=== PATIENT | female | born 1990 | race Caucasian/White ===

== ENCOUNTER 2017-10-18 09:10 | Inpatient (IN) | payer BC ==
[2017-10-18] MEDS ORDERED: Nalbuphine 20 MG/1 ML Amp IM PRN (15:23)
[2017-10-18] MEDS ORDERED: fentaNYL 100 MCG/2 ML SDV IVPUSH PRN (15:23)
[2017-10-18] MEDS ORDERED: Sodium Chloride 0.9% 10 ML Syringe FLUSH PRN (15:23)
[2017-10-18] MEDS ORDERED: Ondansetron 4 MG/2 ML SDV IV PRN ×2 (15:23→19:42)
[2017-10-18] MEDS ORDERED: Carboprost Tromethamine 250 MCG/1 ML Amp IM PRN (15:23)
[2017-10-18] MEDS ORDERED: Lidocaine 1% 30 ML SDV INJECT PRN (15:23)
[2017-10-18] MEDS ORDERED: Tranexamic Acid 1,000 MG in Sodium Chloride 0.9% 100 ML IV PRN (15:23)
[2017-10-18] MEDS ORDERED: Lactated Ringers 500 ML IV ONE (15:23)
[2017-10-18] MEDS ORDERED: Methylergonovine 0.2 MG/1 ML Amp IM PRN (15:23)
[2017-10-18] MEDS ORDERED: Misoprostol 400 MCG (4 X 100 MCG TAB) RECTAL PRN (15:23)
[2017-10-18] MEDS ORDERED: Acetaminophen 325 MG Tab PO PRN (15:23)
[2017-10-18] MEDS ORDERED: Nalbuphine 20 MG/1 ML Amp IVPUSH PRN (15:23)
[2017-10-18] MEDS ORDERED: Oxytocin/Normal Saline 30 UNIT/500 ML BAG IV SCH (15:30)
[2017-10-18] MEDS: Misoprostol 25 MCG (1/4 of 100 MCG) Tab VAG PRN ×2 (15:35→20:30)
--- NOTE | 2017-10-18 17:12 | PCM.LDHP ---
L&D History of Present Illness - General Date of Service: 10/18/17 Admit Problem/Dx: Patient Status Order with Admit Dx/Problem 10/18/17 15:23 Patient Status [ADT] Routine Admission Diagnosis/Problem Admission Diagnosis/Problem Oligohydramnios Source of Information: Patient History Limitations: Reports: No Limitations - History of Present Illness Introduction:: 27-year-old at 39w5d admitted for IOL secondary to oligohydramnios. Patient was seen last week and had an ultrasound for growth. REMA was noted to be borderline low at 6.7 cm. Because of this, patient underwent NST and BPP today. NST was reactive and reassuring; however, BPP was 6/8 for REMA of 4.37. Due to REMA of <5, patient meets criteria for induction of labor. Patient has been feeling well. Baby has been active. No vaginal bleeding or leaking of fluid. No headaches or vision changes. - Related Data Allergies/Adverse Reactions: Allergies Allergy/AdvReac Type Severity Reaction Status Date / Time amoxicillin [From Augmentin] Allergy Cannot Verified 10/18/17 15:12 Remember clavulanic acid Allergy Cannot Verified 10/18/17 15:12 [From Augmentin] Remember Past Medical History Endocrine/Metabolic History: Reports: Hypothyroidism - Past Surgical History HEENT Surgical History: Reports: Myringotomy w Tube(s), Oral Surgery Social & Family History - Family History Cardiac: Reports: CAD (Father, Paternal grandmother) Respiratory: Reports: Asthma (Mother), COPD (Father) Neurological: Reports: CVA (Maternal grandfather) Endocrine/Metabolic: Reports: Hypothyroidism (Mother) Oncologic: Reports: Brain (Paternal grandfather), Breast (Paternal grandmother, several 2nd and 3rd degree relatives) - Tobacco Use Smoking Status *Q: Never Smoker - Tobacco Core Measures Tobacco Use/Smoking Within Last 30 Days: No - Alcohol Use Alcohol Use History: No - Recreational Drug Use Recreational Drug Use: No - Sexual History Sexual History: Reports: Single Partner - Living Situation & Occupation Living situation: Reports: Occupation: Employed (Self) H&P Review of Systems - Review of Systems: Review Of Systems: See Below General: Reports: No Symptoms HEENT: Reports: No Symptoms Pulmonary: Reports: No Symptoms Cardiovascular: Reports: No Symptoms Gastrointestinal: Reports: No Symptoms Genitourinary: Reports: No Symptoms Musculoskeletal: Reports: No Symptoms Skin: Reports: No Symptoms Psychiatric: Reports: No Symptoms Neurological: Reports: No Symptoms Hematologic/Lymphatic: Reports: No Symptoms L&D Exam - Exam Exam: See Below - OB Specific Fundal Height In cm: 38 Movement: Active Heart Tones: Present Heart Tones per Min: 145 Heart Rate (FHR) Variability: Moderate (6-25 bmp) Presentation: Vertex - Perera Score Perera Score Cervix Position: Posterior Perera Score Consistency: Soft Perera Score Effacement: >80% Perera Score Dilation: 1-2 cm Perera Score 's Station: -2 Perera Score Total: 7 - Exam General: Alert, Oriented HEENT: Mucosa Moist & [place], Posterior Pharynx Clear Lungs: Clear to Auscultation, Normal Respiratory Effort Cardiovascular: Regular Rate, Regular Rhythm. No: Systolic Murmur, Diastolic Murmur Genitourinary: Normal external exam, Normal bimanual exam Back Exam: Normal Inspection Extremities: Pedal Edema (1+ to lower extremities bilterally) Skin: Warm, Dry, Intact Psychiatric: Alert, Normal Affect, Normal Mood - Patient Data Lab Results Last 24 hrs: Laboratory Results - last 24 hr 10/18/17 Range/Units 15:40 WBC 11.1 H (5.0-10.0) 10^3/uL RBC 4.28 (4.2-5.4) 10^6/uL Hgb 13.3 (12.0-16.0) g/dL Hct 38.1 (37.0-47.0) % MCV 89.0 (80-100) fL MCH 31.1 (27.0-34.0) pg MCHC 34.9 (33.0-35.0) g/dL Plt Count 196 (150-450) 10^3/uL Result Diagrams: 10/18/17 15:40 - Problem List (1) Oligohydramnios in fowler in third trimester SNOMED Code(s): 49583455, 56848238 ICD Code: O41.03X0 - OLIGOHYDRAMNIOS, THIRD TRIMESTER, NOT APPLICABLE OR UNSP Status: Acute Current Visit: Yes (2) Hypothyroidism SNOMED Code(s): 54268791 ICD Code: E03.9 - HYPOTHYROIDISM, UNSPECIFIED Status: Acute Current Visit : Yes (3) care in third trimester SNOMED Code(s): 825591712, 42494584, 77910573, 260512481, 459895193 ICD Code: Z34.93 - ENCNTR FOR SUPRVSN OF NORMAL PREG, UNSP, THIRD TRIMESTER Status: Acute Current Visit: Yes Problem List Initiated/Reviewed/Updated: Yes Orders Last 24hrs: Active Orders 24 hr Category Date Time Status Patient Status [ADT] Routine ADT 10/18/17 15:23 Active Communication Order [RC] ASDIRECTED Care 10/18/17 15:23 Active Communication Order [RC] ASDIRECTED Care 10/18/17 15:23 Active Communication Order [RC] ASDIRECTED Care 10/18/17 15:23 Active Communication Order [RC] ASDIRECTED Care 10/18/17 15:23 Active Communication Order [RC] ASDIRECTED Care 10/18/17 15:23 Active Communication Order [RC] ASDIRECTED Care 10/18/17 15:23 Active Heart Tones [RC] PER UNIT ROUTINE Care 10/18/17 15:23 Active Monitoring [RC] PER UNIT ROUTINE Care 10/18/17 15:23 Active Notify Provider Vital Signs OB [RC] ASDIRECTED Care 10/18/17 15:23 Active Notify Provider [RC] PRN Care 10/18/17 15:23 Active Notify Provider [RC] PRN Care 10/18/17 15:23 Active Notify Provider [RC] PRN Care 10/18/17 15:23 Active Notify Provider [RC] STAT Care 10/18/17 15:23 Active Pump Management, Intrathecal [RC] ASDIRECTED Care 10/18/17 15:23 Active Up ad Makenzie [RC] ASDIRECTED Care 10/18/17 15:23 Active Vaginal Exam [RC] PRN Care 10/18/17 15:23 Active Vital Signs [RC] PER UNIT ROUTINE Care 10/18/17 15:23 Active Clear Liquid Diet [DIET] Diet 10/18/17 Dinner Active Acetaminophen [Tylenol] Med 10/18/17 15:23 Active 650 mg PO Q4H PRN Carboprost Tromethamine [Hemabate DS] Med 10/18/17 15:23 Active 250 mcg IM ASDIRECTED PRN Lactated Ringers [Ringers, Lactated] 1,000 ml Med 10/18/17 15:30 Active IV ASDIRECTED Levothyroxine Med 10/19/17 06:00 Active 25 mcg PO ACBREAKFAST Lidocaine 1% [Xylocaine-MPF 1%] Med 10/18/17 15:23 Active 10 ml INJECT ASDIRECTED PRN Methylergonovine [Methergine] Med 10/18/17 15:23 Active 0.2 mg IM ASDIRECTED PRN Misoprostol [Cytotec] Med 10/18/17 15:23 Active 25 mcg VAG Q4H PRN Misoprostol [Cytotec] Med 10/18/17 15:23 Active 800 mcg RECTAL ASDIRECTED PRN Nalbuphine [Nubain] Med 10/18/17 15:23 Active 10 mg IVPUSH Q3H PRN Nalbuphine [Nubain] Med 10/18/17 15:23 Active 20 mg IM Q3H PRN Ondansetron [Zofran] Med 10/18/17 15:23 Active 4 mg IV Q4H PRN Oxytocin/Normal Saline [Pitocin in NS 30 UNIT/500 ML] Med 10/18/17 15:30 Active 30 unit in 500 ml IV TITRATE Sodium Chloride 0.9% [Saline Flush] Med 10/18/17 15:23 Active 10 ml FLUSH ASDIRECTED PRN Tranexamic Acid [Cyklokapron] 1,000 mg Med 10/18/17 15:23 Active Sodium Chloride 0.9% [Normal Saline] 100 ml IV ONETIME fentaNYL [Sublimaze] Med 10/18/17 15:23 Active 50 mcg IVPUSH Q1H PRN Saline Lock Insert [OM.PC] Routine Oth 10/18/17 15:23 Ordered Resuscitation Status Routine Resus Stat 10/18/17 15:23 Ordered Medication Orders Acetaminophen (Tylenol) 650 mg PO Q4H PRN PRN Reason: Pain (Mild 1-3) and fever Carboprost Tromethamine (Hemabate Ds) 250 mcg IM ASDIRECTED PRN PRN Reason: HEMORRHAGE Fentanyl (Sublimaze) 50 mcg IVPUSH Q1H PRN PRN Reason: Pain (moderate 4-6) Lactated Ringer's (Ringers, Lactated) 1,000 mls @ 125 mls/hr IV ASDIRECTED LORRI Oxytocin/Sodium Chloride (Pitocin In Ns 30 Unit/500 Ml) 30 unit in 500 mls @ 2 mls/hr IV TITRATE LORRI; Protocol Tranexamic Acid 1,000 mg/ (Sodium Chloride) 110 mls @ 660 mls/hr IV ONETIME PRN PRN Reason: Bleeding Levothyroxine Sodium (Levothyroxine) 25 mcg PO ACBREAKFAST LORRI Lidocaine HCl (Xylocaine-Mpf 1%) 10 ml INJECT ASDIRECTED PRN PRN Reason: Perineal Repair Methylergonovine Maleate (Methergine) 0.2 mg IM ASDIRECTED PRN PRN Reason: Hemorrhage Misoprostol (Cytotec) 800 mcg RECTAL ASDIRECTED PRN PRN Reason: Hemorrhage Misoprostol (Cytotec) 25 mcg VAG Q4H PRN PRN Reason: cervical ripening Last Admin: 10/18/17 15:35 Dose: 25 mcg Nalbuphine HCl (Nubain) 10 mg IVPUSH Q3H PRN PRN Reason: Pain (moderate 4-6) Nalbuphine HCl (Nubain) 20 mg IM Q3H PRN PRN Reason: Abdominal Pain Ondansetron HCl (Zofran) 4 mg IV Q4H PRN PRN Reason: Nausea/Vomiting Sodium Chloride (Saline Flush) 10 ml FLUSH ASDIRECTED PRN PRN Reason: Keep Vein Open Assessment/Plan Comment:: 27-year-old at 39w5d for IOL secondary to oligohydramnios 1. Admit to L&D. Initiate routine intrapartum orders. 2. Cytotec placed at 1530 3. Strict clear liquid diet due to history of vomiting with anesthesia 4. AROM and pitocin for augmentation as needed 5. Expectant management. Anticipate Patricia Rivera MD
[2017-10-18] MEDS ORDERED: Lactated Ringers 1,000 ML IV PRN (19:39)
[2017-10-18] MEDS ORDERED: diphenhydrAMINE 50 MG/ML SDV IV PRN (19:43)
[2017-10-18] MEDS ORDERED: Citric Acid/Sodium Citrate Solution 30 ML Cup PO PRN (19:43)
[2017-10-18] MEDS ORDERED: hydrOXYzine HCl 25 MG Tab PO ONE (20:42)
[2017-10-19] MEDS: Lactated Ringers 1,000 ML IV SCH ×4 (02:17→14:33)
[2017-10-19] MEDS ORDERED: Bupivacaine 0.75%/D5W 2 ML Amp ONE (05:17)
[2017-10-19] MEDS ORDERED: EPINEPHrine 1 MG/ML SDV ONE (05:17)
[2017-10-19] MEDS ORDERED: fentaNYL 100 MCG/2 ML SDV ONE (05:17)
--- NOTE | 2017-10-19 05:58 | PCM.PRNOTE ---
- Free Text/Narrative Note: Requested to provide analgesia to full term patient in severe pain. Upon entering the room, patient is supine in bed complaining of severe abdominal/ pelvic pain and discomfort. Procedure was discussed with patient including adverse outcomes and expectations. Pt consented to analgesia, SAB/IT. Pt placed into a sitting position. Landmarks for SAB/IT were identified and marked. Hands were washed and appropriate PPE was applied. Back was prepped with betadine x3. A sterile, transparent, fenestrated drape was applied. Excess betadine was removed. Using 3 mL of a 1% lidocaine solution, a skin wheel was placed at the L3/L4 interspace. A 24 ga (4 inch) Pencan spinal needle was inserted until positive for CSF. Negative for heme or paresthesias. Injected fentanyl 20 mcg, sufentanil 10 mcg, and 11.25 mg of a 0.75% bupivacaine solution with an epi wash. Pt was placed left lateral position for approximately 20 minutes. There were zero complications or adverse outcomes. Will continue to monitor.
[2017-10-19] MEDS ORDERED: Acetaminophen 325 MG Tab PO PRN (13:41)
[2017-10-19] MEDS ORDERED: Benzocaine/Menthol 20%-0.5% Spray 56 GM Canister TOP PRN (13:41)
[2017-10-19] MEDS ORDERED: Simethicone 80 MG Tab.Chew PO PRN (13:41)
[2017-10-19] MEDS ORDERED: Famotidine 20 MG Tab PO PRN (13:50)
[2017-10-19] MEDS: Ibuprofen 800 MG Tab PO PRN ×2 (14:30→22:13)
[2017-10-19] MEDS: Levothyroxine 25 MCG Tab PO SCH (16:31)
[2017-10-19] MEDS: Docusate Sodium 100 MG Cap PO PRN (22:14)
[2017-10-20] MEDS: Levothyroxine 25 MCG Tab PO SCH (05:44)
[2017-10-20] MEDS: Ibuprofen 800 MG Tab PO PRN ×2 (08:28→21:52)
[2017-10-20] MEDS: Ferrous Sulfate 325 MG Tab PO SCH (08:28)
[2017-10-20] MEDS: Prenatal Multivitamin with Calcium/Folic Acid/Iron Tab PO SCH (08:28)
[2017-10-20] MEDS: Docusate Sodium 100 MG Cap PO PRN ×2 (08:29→21:52)
--- NOTE | 2017-10-20 09:13 | PN ---
DATE: 10/20/2017 SUBJECTIVE: day #1, status post vacuum-assisted vaginal delivery, doing well. She has been ambulating and tolerating regular diet, voiding without difficulties, has not yet had a bowel movement. No chest pain or shortness of breath. No symptoms of preeclampsia. Bleeding is a little bit heavier than she thought it would be, but sounds normal for this stage of . Also, reports that the bleeding tends to be more intense after nursing her . No new concerns today, and feels that things are going quite well. Anticipating discharge home tomorrow. OBJECTIVE: Vital Signs: Temperature is 98.4; pulse generally in the 70s, however, most recent was 101; blood pressure 120/81; respiratory rate of 16; and O2 saturations 99% on room air. Heart: Regular without murmur. Lungs: Clear to auscultation bilaterally. Abdomen: Soft and nontender. Bowel sounds are positive. Fundus is firm and below the umbilicus. Extremities: 2+ pitting edema on the right, 1+ pitting edema on the left. No erythema or tenderness noted. LABORATORY DATA: Admission hemoglobin was 13.3. Blood loss at delivery was really average to small; therefore, a repeat CBC not needed. ASSESSMENT: 1. Status post vacuum-assisted vaginal delivery, day #1. 2. Status post induction of labor for oligohydramnios. 3. 1, now para 1. 4. mother. 5. 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 PLAN: Continue routine cares, and anticipate discharge home tomorrow. Dr. Rivera will be seeing her again at that time. They will contact me prior to that if any concerns arise. [facility] /[phone]
[2017-10-21] MEDS: Ibuprofen 800 MG Tab PO PRN ×2 (05:52→14:18)
[2017-10-21] MEDS: Levothyroxine 25 MCG Tab PO SCH (05:52)
[2017-10-21] MEDS: Prenatal Multivitamin with Calcium/Folic Acid/Iron Tab PO SCH (10:28)
[2017-10-21] MEDS: Docusate Sodium 100 MG Cap PO PRN (10:29)
[2017-10-21] MEDS: Ferrous Sulfate 325 MG Tab PO SCH (10:29)
--- NOTE | 2017-10-21 11:35 | PCM.DCSUM1 ---
Discharge Summary - Hospital Course Free Text/Narrative:: 27-year-old PPD#2 status post VAVD at 39w6d gestation after IOL for oligohydramnios - Discharge Data Discharge Date: 10/21/17 Discharge Disposition: Home, Self-Care 01 Condition: Good - Discharge Diagnosis/Problem(s) (1) Oligohydramnios in fowler in third trimester SNOMED Code(s): 80298021, 08968988 ICD Code: O41.03X0 - OLIGOHYDRAMNIOS, THIRD TRIMESTER, NOT APPLICABLE OR UNSP Status: Acute Current Visit: Yes (2) Hypothyroidism SNOMED Code(s): 19234733 ICD Code: E03.9 - HYPOTHYROIDISM, UNSPECIFIED Status: Acute Current Visit : Yes (3) care in third trimester SNOMED Code(s): 080669540, 65129626, 45490835, 809412899, 345891087 ICD Code: Z34.93 - ENCNTR FOR SUPRVSN OF NORMAL PREG, UNSP, THIRD TRIMESTER Status: Acute Current Visit: Yes (4) Perineal laceration during delivery, delivered SNOMED Code(s): 433525643 ICD Code: O70.9 - PERINEAL LACERATION DURING DELIVERY, UNSPECIFIED Status: Acute Current Visit: Yes (5) Status post vacuum-assisted vaginal delivery SNOMED Code(s): 130435427, [id number] ICD Code: Z87.42 - PERSONAL HISTORY OF OTH DISEASES OF THE FEMALE GENITAL TRACT Status: Acute Current Visit: Yes - Patient Summary/Data Operative Procedure(s) Performed: VAVD Complications: None Consults: None Labs Pending at D/C: None Recommended Follow-up Testing/Procedures: None Planned Operative Procedure(s) after DC: None Hospital Course: Unremarkable. (Please see subjective section) - Patient Instructions Diet: Usual Diet as Tolerated Activity: As Tolerated, No Lifting Over 20 Pounds Driving: May Drive Today Showering/Bathing: May Shower Notify Provider of: Fever, Increased Pain, Nausea and/or Vomiting - Discharge Plan Home Medications: Home Meds Famotidine [Pepcid] 20 mg PO DAILY PRN 10/18/17 [History] Levothyroxine 25 mcg PO ACBREAKFAST 10/18/17 [History] Omeprazole [priLOSEC OTC] 20 mg PO DAILY PRN 10/18/17 [History] Vits #93/Iron Fum/FA [ Formula Tablet] 1 tab PO DAILY 10/18/17 [History] Acetaminophen [Tylenol] 650 mg PO Q6H PRN tablet 10/21/17 [Rx] Docusate Sodium [Colace] 100 mg PO BID PRN cap 10/21/17 [Rx] Ibuprofen [IJD: Ibuprofen] 800 mg PO Q8H PRN tablet 10/21/17 [Rx] Patient Handouts: Home Care Instructions for Mom, Care of a Perineal Tear Referrals: Patricia Rivera MD [Primary Care Provider] - (6-8 weeks for visit) - Discharge Summary/Plan Comment DC Time >30 min.: No Discharge Summary/Plan Comment: Discharge home today with follow-up in 6-8 weeks for routine check. Reasons to return to the clinic sooner or present to the emergency department were reviewed with the patient, and all questions were answered. - General Info Date of Service: 10/21/17 Subjective Update: Patient is doing well. She is tolerating a general diet. She is ambulating without difficulty. She is urinating and passing gas but has not yet had a bowel movement. Her pain is well-controlled with Tylenol and ibuprofen. Vaginal bleeding has decreased. Breast-feeding is going fairly well. There is concern that the baby may have a tongue tie. No concerns per patient or per nursing. Functional Status: Reports: Pain Controlled, Tolerating Diet, Ambulating, Urinating. Denies: New Symptoms - Review of Systems General: Reports: No Symptoms HEENT: Reports: No Symptoms Pulmonary: Reports: No Symptoms Cardiovascular: Reports: No Symptoms Gastrointestinal: Reports: No Symptoms Genitourinary: Reports: No Symptoms Musculoskeletal: Reports: No Symptoms - Patient Data Vitals - Most Recent: Last Vital Signs Temp 36.9 C 10/21/17 08:00 Pulse 84 10/21/17 08:00 Resp 16 10/21/17 08:00 BP 136/77 10/21/17 08:00 Pulse Ox 98 10/20/17 20:00 Weight - Most Recent: 111.584 kg Med Orders - Current: Current Medications Acetaminophen (Tylenol) 650 mg PO Q4H PRN PRN Reason: Pain (Mild 1-3) and fever Acetaminophen (Tylenol) 650 mg PO Q6H PRN PRN Reason: mild pain or fever Benzocaine/Menthol (Dermoplast Pain Relief [place]) 0 gm TOP Q4H PRN PRN Reason: Perineal comfort measures Last Admin: 10/19/17 14:30 Dose: 1 applic Carboprost Tromethamine (Hemabate Ds) 250 mcg IM ASDIRECTED PRN PRN Reason: HEMORRHAGE Docusate Sodium (Colace) 100 mg PO BID PRN PRN Reason: Constipation Last Admin: 10/21/17 10:29 Dose: 100 mg Famotidine (Pepcid) 20 mg PO BID PRN PRN Reason: Heartburn Ferrous Sulfate (Ferrous Sulfate) 325 mg PO WITHBREAKFAST LORRI Last Admin: 10/21/17 10:29 Dose: 325 mg Oxytocin/Sodium Chloride (Pitocin In Ns 30 Unit/500 Ml) 30 unit in 500 mls @ 2 mls/hr IV TITRATE LORRI; Protocol Last Titration: 10/19/17 12:00 Dose: 0 mls/hr Tranexamic Acid 1,000 mg/ (Sodium Chloride) 110 mls @ 660 mls/hr IV ONETIME PRN PRN Reason: Bleeding Ibuprofen (Motrin) 800 mg PO Q8H PRN PRN Reason: Mild Pain or Fever Last Admin: 10/21/17 05:52 Dose: 800 mg Levothyroxine Sodium (Levothyroxine) 25 mcg PO ACBREAKFAST [facility] Last Admin: 10/21/17 05:52 Dose: 25 mcg Methylergonovine Maleate (Methergine) 0.2 mg IM ASDIRECTED PRN PRN Reason: Hemorrhage Misoprostol (Cytotec) 800 mcg RECTAL ASDIRECTED PRN PRN Reason: Hemorrhage Ondansetron HCl (Zofran) 4 mg IV Q4H PRN PRN Reason: Nausea/Vomiting Prenat Multivit/[place]/Iron/Folic Ac ( Plus Iron) 1 each PO DAILY LORRI Last Admin: 10/21/17 10:28 Dose: 1 each Simethicone (Simethicone) 80 mg PO Q4H PRN PRN Reason: Gas Sodium Chloride (Saline Flush) 10 ml FLUSH ASDIRECTED PRN PRN Reason: Keep Vein Open Discontinued Medications Bupivacaine HCl/Dextrose (Marcaine 0.75% Spinal) Confirm Administered Dose 2 ml .ROUTE .ST-MED ONE Stop: 10/19/17 05:18 Last Admin: 10/19/17 05:40 Dose: Not Given Citric Acid/Sodium Citrate (Bicitra Solution) 30 ml PO ASDIRECTED PRN PRN Reason: PRIOR TO INTRATHECAL Last Admin: 10/19/17 04:43 Dose: 30 ml Diphenhydramine HCl (Benadryl) 25 mg IV ASDIRECTED PRN PRN Reason: PRIOR TO INTRATHECAL Last Admin: 10/19/17 04:44 Dose: 25 mg Epinephrine HCl (Adrenalin) Confirm Administered Dose 1 mg .ROUTE .STK-MED ONE Stop: 10/19/17 05:18 Last Admin: 10/19/17 05:39 Dose: Not Given Famotidine (Pepcid) 20 mg IV ASDIRECTED PRN PRN Reason: PRIOR TO INTRATHECAL Last Admin: 10/19/17 04:45 Dose: 20 mg Fentanyl (Sublimaze) 50 mcg IVPUSH Q1H PRN PRN Reason: Pain (moderate 4-6) Fentanyl (Sublimaze) Confirm Administered Dose 100 mcg .ROUTE .STK-MED ONE Stop: 10/19/17 05:18 Last Admin: 10/19/17 05:40 Dose: Not Given Hydroxyzine HCl (Atarax) 50 mg PO ONETIME ONE Stop: 10/18/17 20:43 Last Admin: 10/19/17 02:51 Dose: 50 mg Lactated Ringer's (Ringers, Lactated) 500 mls @ 999 mls/hr IV .BOLUS ONE Stop: 10/18/17 15:53 Lactated Ringer's (Ringers, Lactated) 1,000 mls @ 125 mls/hr IV ASDIRECTED LORRI Last Admin: 10/19/17 14:33 Dose: 125 mls/hr Lactated Ringer's (Ringers, Lactated) 1,000 mls @ 999 mls/hr IV .Q1H1M PRN PRN Reason: PRIOR TO INTRATHECAL Lidocaine HCl (Xylocaine-Mpf 1%) 10 ml INJECT ASDIRECTED PRN PRN Reason: Perineal Repair Lidocaine HCl (Xylocaine-Mpf 1%) Confirm Administered Dose 5 ml .ROUTE .STK-MED ONE Stop: 10/19/17 05:18 Last Admin: 10/19/17 05:40 Dose: Not Given Misoprostol (Cytotec) 25 mcg VAG Q4H PRN PRN Reason: cervical ripening Last Admin: 10/18/17 20:30 Dose: 25 mcg Nalbuphine HCl (Nubain) 10 mg IVPUSH Q3H PRN PRN Reason: Pain (moderate 4-6) Nalbuphine HCl (Nubain) 20 mg IM Q3H PRN PRN Reason: Abdominal Pain Last Admin: 10/19/17 03:32 Dose: 20 mg Ondansetron HCl (Zofran) 4 mg IV ASDIRECTED PRN PRN Reason: PRIOR TO INTRATHECAL Last Admin: 10/19/17 04:43 Dose: 4 mg Sufentanil Citrate (Sufenta) Confirm Administered Dose 50 mcg .ROUTE .[employer] [place]-MED ONE Stop: 10/19/17 05:18 Last Admin: 10/19/17 05:40 Dose: Not Given - Exam General: Reports: Alert, Oriented Lungs: Reports: Clear to Auscultation, Normal Respiratory Effort Cardiovascular: Reports: Regular Rate, Regular Rhythm, No Murmurs GI/Abdominal Exam: Soft, Non-Tender Extremities: Pedal Edema (Trace bilaterally) Skin: Reports: Warm, Dry, Intact
--- NOTE | 2017-10-21 11:35 | PCM.DEL ---
L & D Note - General Info Date of Service: 10/19/17 Mother's Due Date: 10/20/17 - Delivery Note Labor: Induced by Oxytocin Cervical Ripening Method: Misoprostil, Oxytocin Delivery Outcome: Livebirth Delivery Method: Spontaneous Vaginal Delivery-Single Infant Delivery Mode: Vacuum Extraction Presentation: Vertex Nuchal Cord: None Anesthesia Type: Intrathecal Amniotic Fluid Description: Clear Episiotomy Type: None Laceration: 2nd Degree, Perineal Suture type: Vicryl Suture size: 3-0 Placenta: Intact, Spontaneous Cord: 3 Vessels Estimated Blood Loss: 175 Resuscitation Needed: No [place]: Stimulated, Warmed Provider: Patricia Rivera Score 1 min: 9 Score 5 min: 9 Delivery Comments (Free Text/Narrative):: 27-year-old at 39w5d presented to labor and delivery for induction due to oligohydramnios with an REMA of 4.37. Patient received 2 doses of Cytotec for cervical ripening. Pitocin was started for augmentation. Patient spontaneously ruptured for clear fluid. She received an intrathecal for pain control. About 8 hours 30 minutes after active labor started, patient was noted to be complete. She was allowed to labor down for approximately 90 minutes. Once she is able to feel her contractions, she started pushing. Patient was making fair progress with pushing but was noted to become fatigued. Baby was also suspected to be asynclitic. Therefore, the decision was made to proceed with vacuum assisted vaginal delivery. Dr. Reed was also present and was asked to assess, and she agreed with proceeding. A Kiwi mighty Vac was placed ensuring to avoid maternal tissue. The vacuum was used with 1 contraction. On the third pole, the vacuum lost suction. However, the head had distended enough that delivery was able to be completed without further use of the vacuum. A viable male infant with Apgars of 9 and 9 at one and 5 minutes respectively was delivered without difficulty. He was placed on the mother's chest. The cord was clamped 2 and cut after pulsing had halted. Cord blood was collected. A small second-degree perineal laceration was repaired in the usual fashion. Approximately 15 minutes after delivery, the placenta was delivered spontaneously and intact. Uterine massage was performed, and bleeding was appropriate. There were no immediate complications, and patient tolerated the procedure well. Induction Criteria - Perera Score Perera Score Dilation: 1-2 cm Perera Score Effacement: >80% Perera Score Infant's Station: -2 Perera Score Consistency: Soft Perera Score Cervix Position: Posterior Perera Score Total: 7 Perera Score Presenting Part: Reports: Cephalic - Induction Gestational Age >/= 39 wks: Yes Medical Indication: Oligohydramnios Estimated Pelvis: Reports: Adequate Reassuring Monitoring Strip: Yes Absence of Tachy Systole: Yes - Augmentation Estimated Pelvis: Reports: Adequate Weight Estimated:: Reports: SGA Reassuring Monitoring Strip: Yes Absence of Tachy Systole: Yes Vacuum Extractor Progress Note - Alternative Labor Strategies Considered Alternative Labor Strategies Considered:: Reports: Yes Strategies Considered:: Reports: Contraction Intensity Adequate, Position Changes Used to Facilitate Rotation & Descent, Empty Bladder, Rest Indications Considered:: Reports: Yes Indications:: Reports: Shortening of 2nd Stage for Maternal Benefit - Patient Prepared Patient Prepared:: Reports: Yes Informed Consent:: Reports: Verbal Risks: Reports: Yes Risks Include:: Reports: Laceration, Shoulder Dystocia, Maternal Injury, Other Anesthesia/Analgesia Adequate:: Reports: Yes - Probability of Success High Probability of Success:: Reports: Yes Patient Diabetic:: Reports: No Pelvis Adequate:: Reports: Yes Asynclitic:: Reports: Yes Station:: 1+ - Application Time Maximum Application Time & Number of Pop-Offs Predetermined:: Reports: Yes (3) Total Application Time (min): *max=20min: 2 Number of Times Cup Disengaged:: 1 Type of Vacuum Used:: Reports: Cup: Soft Vacuum Extraction: Successful - Exit Strategy Exit strategy available:: Reports: Yes and resuscitation teams readily available:: Reports: Yes - Patient Data Vitals - Most Recent: Last Vital Signs Temp 36.9 C 10/21/17 08:00 Pulse 84 10/21/17 08:00 Resp 16 10/21/17 08:00 BP 136/77 10/21/17 08:00 Pulse Ox 98 10/20/17 20:00 Weight - Most Recent: 111.584 kg Med Orders - Current: Current Medications Acetaminophen (Tylenol) 650 mg PO Q4H PRN PRN Reason: Pain (Mild 1-3) and fever Acetaminophen (Tylenol) 650 mg PO Q6H PRN PRN Reason: mild pain or fever Benzocaine/Menthol (Dermoplast Pain Relief [place]) 0 gm TOP Q4H PRN PRN Reason: Perineal comfort measures Last Admin: 10/19/17 14:30 Dose: 1 applic Carboprost Tromethamine (Hemabate Ds) 250 mcg IM ASDIRECTED PRN PRN Reason: HEMORRHAGE Docusate Sodium (Colace) 100 mg PO BID PRN PRN Reason: Constipation Last Admin: 10/21/17 10:29 Dose: 100 mg Famotidine (Pepcid) 20 mg PO BID PRN PRN Reason: Heartburn Ferrous Sulfate (Ferrous Sulfate) 325 mg PO WITHBREAKFAST LORRI Last Admin: 10/21/17 10:29 Dose: 325 mg Oxytocin/Sodium Chloride (Pitocin In Ns 30 Unit/500 Ml) 30 unit in 500 mls @ 2 mls/hr IV TITRATE [facility]; Protocol Last Titration: 10/19/17 12:00 Dose: 0 mls/hr Tranexamic Acid 1,000 mg/ (Sodium Chloride) 110 mls @ 660 mls/hr IV ONETIME PRN PRN Reason: Bleeding Ibuprofen (Motrin) 800 mg PO Q8H PRN PRN Reason: Mild Pain or Fever Last Admin: 10/21/17 05:52 Dose: 800 mg Levothyroxine Sodium (Levothyroxine) 25 mcg PO ACBREAKFAST [facility] Last Admin: 10/21/17 05:52 Dose: 25 mcg Methylergonovine Maleate (Methergine) 0.2 mg IM ASDIRECTED PRN PRN Reason: Hemorrhage Misoprostol (Cytotec) 800 mcg RECTAL ASDIRECTED PRN PRN Reason: Hemorrhage Ondansetron HCl (Zofran) 4 mg IV Q4H PRN PRN Reason: Nausea/Vomiting Prenat Multivit/[place]/Iron/Folic Ac ( Plus Iron) 1 each PO DAILY LORRI Last Admin: 10/21/17 10:28 Dose: 1 each Simethicone (Simethicone) 80 mg PO Q4H PRN PRN Reason: Gas Sodium Chloride (Saline Flush) 10 ml FLUSH ASDIRECTED PRN PRN Reason: Keep Vein Open Discontinued Medications Bupivacaine HCl/Dextrose (Marcaine 0.75% Spinal) Confirm Administered Dose 2 ml .ROUTE .STK-MED ONE Stop: 10/19/17 05:18 Last Admin: 10/19/17 05:40 Dose: Not Given Citric Acid/Sodium Citrate (Bicitra Solution) 30 ml PO ASDIRECTED PRN PRN Reason: PRIOR TO INTRATHECAL Last Admin: 10/19/17 04:43 Dose: 30 ml Diphenhydramine HCl (Benadryl) 25 mg IV ASDIRECTED PRN PRN Reason: PRIOR TO INTRATHECAL Last Admin: 10/19/17 04:44 Dose: 25 mg Epinephrine HCl (Adrenalin) Confirm Administered Dose 1 mg .ROUTE .STK-MED ONE Stop: 10/19/17 05:18 Last Admin: 10/19/17 05:39 Dose: Not Given Famotidine (Pepcid) 20 mg IV ASDIRECTED PRN PRN Reason: PRIOR TO INTRATHECAL Last Admin: 10/19/17 04:45 Dose: 20 mg Fentanyl (Sublimaze) 50 mcg IVPUSH Q1H PRN PRN Reason: Pain (moderate 4-6) Fentanyl (Sublimaze) Confirm Administered Dose 100 mcg .ROUTE .[email or web address]-MED ONE Stop: 10/19/17 05:18 Last Admin: 10/19/17 05:40 Dose: Not Given Hydroxyzine HCl (Atarax) 50 mg PO ONETIME ONE Stop: 10/18/17 20:43 Last Admin: 10/19/17 02:51 Dose: 50 mg Lactated Ringer's (Ringers, Lactated) 500 mls @ 999 mls/hr IV .BOLUS ONE Stop: 10/18/17 15:53 Lactated Ringer's (Ringers, Lactated) 1,000 mls @ 125 mls/hr IV ASDIRECTED LORRI Last Admin: 10/19/17 14:33 Dose: 125 mls/hr Lactated Ringer's (Ringers, Lactated) 1,000 mls @ 999 mls/hr IV .Q1H1M PRN PRN Reason: PRIOR TO INTRATHECAL Lidocaine HCl (Xylocaine-Mpf 1%) 10 ml INJECT ASDIRECTED PRN PRN Reason: Perineal Repair Lidocaine HCl (Xylocaine-Mpf 1%) Confirm Administered Dose 5 ml .ROUTE .STK-MED ONE Stop: 10/19/17 05:18 Last Admin: 10/19/17 05:40 Dose: Not Given Misoprostol (Cytotec) 25 mcg VAG Q4H PRN PRN Reason: cervical ripening Last Admin: 10/18/17 20:30 Dose: 25 mcg Nalbuphine HCl (Nubain) 10 mg IVPUSH Q3H PRN PRN Reason: Pain (moderate 4-6) Nalbuphine HCl (Nubain) 20 mg IM Q3H PRN PRN Reason: Abdominal Pain Last Admin: 10/19/17 03:32 Dose: 20 mg Ondansetron HCl (Zofran) 4 mg IV ASDIRECTED PRN PRN Reason: PRIOR TO INTRATHECAL Last Admin: 10/19/17 04:43 Dose: 4 mg Sufentanil Citrate (Sufenta) Confirm Administered Dose 50 mcg .ROUTE .STK-MED ONE Stop: 10/19/17 05:18 Last Admin: 10/19/17 05:40 Dose: Not Given - Problem List & Annotations (1) Oligohydramnios in fowler in third trimester SNOMED Code(s): 80620805, 30978694 Code(s): O41.03X0 - OLIGOHYDRAMNIOS, THIRD TRIMESTER, NOT APPLICABLE OR UNSP Status: Acute Current Visit: Yes (2) Hypothyroidism SNOMED Code(s): 71490402 Code(s): E03.9 - HYPOTHYROIDISM, UNSPECIFIED Status: Acute Current Visit : Yes (3) care in third trimester SNOMED Code(s): 327295100, 05771517, 15445105, 934723854, 480112611 Code(s): Z34.93 - ENCNTR FOR SUPRVSN OF NORMAL PREG, UNSP, THIRD TRIMESTER Status: Acute Current Visit: Yes (4) Status post vacuum-assisted vaginal delivery SNOMED Code(s): 629074662, 99402315238466469 Code(s): Z87.42 - PERSONAL HISTORY OF OTH DISEASES OF THE FEMALE GENITAL TRACT Status: Acute Current Visit: Yes (5) Perineal laceration during delivery, delivered SNOMED Code(s): 969750557 Code(s): O70.9 - PERINEAL LACERATION DURING DELIVERY, UNSPECIFIED Status: Acute Current Visit: Yes - Problem List Review Problem List Initiated/Reviewed/Updated: Yes - Assessment Assessment:: 27-year-old, now , status post VAVD at 39w6d - Plan Plan:: 1. Initiate routine cares 2. Mother plans to breast-feed 3. Anticipate discharge 10/21/2017. Dr. Reed will see patient tomorrow in my absence. I will resume care on 10/21/2017 Patricia Rivera MD
[2017-10-21] MEDS ORDERED: fentaNYL 100 MCG/2 ML SDV ITHECAL ONE (13:13)
[2017-10-21] MEDS ORDERED: EPINEPHrine 1 MG/ML SDV ONE (13:13)
== END 2017-10-21 17:30 | disposition home or self-care (01) | DRG 560 ==
LOC: DL.OB 09:10 → OBSVTOIN 10-19 09:10
PROVIDERS: ADMIT Family Medicine; ATTEND Family Medicine
PROC: 10D07Z6 Extraction of Products of Conception, Vacuum, Via Natural or Artificial Opening (ICD-10-PCS; principal; 2017-10-19)
PROC: 3E0P7VZ Introduction of Hormone into Female Reproductive, Via Natural or Artificial Opening (ICD-10-PCS; 2017-10-19)
PROC: 0KQM0ZZ Repair Perineum Muscle, Open Approach (ICD-10-PCS; 2017-10-19)
PROC: 00HU33Z Insertion of Infusion Device into Spinal Canal, Percutaneous Approach (ICD-10-PCS; 2017-10-19)
PROC: 3E0R3BZ Introduction of Anesthetic Agent into Spinal Canal, Percutaneous Approach (ICD-10-PCS; 2017-10-19)
DX: O41.03X0 Oligohydramnios, third trimester, not applicable or unspecified (principal); Z3A.39 39 weeks gestation of pregnancy; Z37.0 Single live birth; O99.284 Endocrine, nutritional and metabolic diseases complicating childbirth; E03.9 Hypothyroidism, unspecified; O75.81 Maternal exhaustion complicating labor and delivery; O32.8XX0 Maternal care for other malpresentation of fetus, not applicable or unspecified; O70.1 Second degree perineal laceration during delivery; Z88.1 Allergy status to other antibiotic agents
CPT/HCPCS: 36415; 59025; 59300; 59409; 85027; A9270-GY; J0171; J1200; J2300; J2405; J2590; J3010; J3490; J7120

== ENCOUNTER 2021-03-03 07:07 | Inpatient (IN) | payer BC ==
[2021-03-03] MEDS ORDERED: Methylergonovine 0.2 MG/1 ML Amp IM PRN (08:11)
[2021-03-03] MEDS ORDERED: Sodium Chloride 0.9% 10 ML Syringe FLUSH PRN (08:11)
[2021-03-03] MEDS ORDERED: Acetaminophen 325 MG Tab PO PRN (08:11)
[2021-03-03] MEDS ORDERED: Carboprost Tromethamine 250 MCG/1 ML Amp IM PRN (08:11)
[2021-03-03] MEDS ORDERED: Tranexamic Acid 1,000 MG in Sodium Chloride 0.9% 100 ML IV PRN (08:11)
[2021-03-03] MEDS ORDERED: Misoprostol 400 MCG (4 X 100 MCG TAB) RECTAL PRN (08:11)
[2021-03-03] MEDS ORDERED: Ondansetron 4 MG/2 ML SDV IVPUSH PRN (08:11)
[2021-03-03] MEDS ORDERED: Lactated Ringers 1,000 ML IV ONE (08:11)
[2021-03-03] MEDS ORDERED: Lidocaine 1% 30 ML SDV INJECT PRN (08:11)
[2021-03-03] MEDS ORDERED: Oxytocin/Normal Saline 30 UNIT/500 ML BAG IV SCH (08:15)
[2021-03-03] MEDS: Lactated Ringers 1,000 ML IV SCH ×3 (10:30→18:45)
--- NOTE | 2021-03-03 10:44 | HP ---
ADMITTING DIAGNOSES: 1. Spontaneous rupture of membranes at 37 weeks' 3 days' gestation. 2. Intrauterine at 37 weeks' 3 days' gestation to a 31-year-old 2, para 1 female. 3. Increasing intensity and frequency of contractions. 4. Group B Streptococcus positive status, allergic to Augmentin, requiring vancomycin for prophylaxis. 5. Impaired 1-hour glucose tolerance test, normal 3 hour. 6. O positive, rubella immune. 7. History of oligohydramnios in prior . 8. History of vacuum-assisted vaginal delivery in prior . 9. History of depression in prior . SUBJECTIVE: The patient is a 31-year-old 2, para 1 female, who presented to Labor and Delivery triage at 37 weeks' 3 days' gestation by ultrasound for concerns of rupture of membranes. The patient states that she woke up around 6 a.m. in a puddle of fluid. She states that she did not believe this was urine, but then began to feel increasing pressure along with intensity and frequency of lower back cramping/contractions. The patient denies associated symptoms of fever, chills, headache, change in vision, lower extremity swelling or pain. She does endorse active movement. She does endorse contractions. She does endorse leakage of fluid and spotting as she feels like her mucus plug has been passing. PAST OBSTETRICAL HISTORY: The patient is a 2, para 1 female, who delivered prior vacuum-assisted vaginal delivery. The patient is a GBS carrier and current GBS positive status. The patient is allergic to Augmentin and must be treated with vancomycin for prophylaxis. The patient had a history of oligohydramnios and depression in prior . 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 PAST SURGICAL HISTORY: Please refer to [facility] for further details. FAMILY HISTORY: Please see [facility] for further details. SOCIAL HISTORY: Please see [facility] for further details. OBJECTIVE: Vital Signs: Reviewed in triage. Blood pressure 110/68. Please refer to documentation pending. Appearance: Sitting comfortably in bed. HEENT: Within normal limits. Lungs: Clear to auscultation bilaterally. Heart: Regular rate and rhythm. No murmurs noted. Abdomen: Soft, nontender, gravid uterus palpated 17 cm above umbilicus. Cephalic presentation confirmed by bedside ultrasound. Extremities: Trace pedal edema noted bilaterally. Pelvic: Cervix: 3 cm dilated, 80% effaced, -3 station. Cephalic presentation confirmed by bedside ultrasound. electronic heart monitoring: Baseline heart rate is 140 bpm, moderate variability, accelerations present, no decelerations noted. Miguel Barrera: Contractions noted every 4 to 5 minutes. Interpretation: Category 1 strip, reactive NST. ASSESSMENT: The patient is a 31-year-old 2, para 1 female, presenting at 37 weeks' 3 days' gestation by ultrasound for concern of rupture of membranes. PLAN: 1. AmniSure positive for confirming rupture of membranes. 2. Admission to Labor and Delivery for further management of labor. 3. We will initiate vancomycin for GBS prophylaxis. 4. Routine labor management. The patient was seen and evaluated today by myself and Dr. Patricia Rivera. Assessment and plan is under advisement of Dr. Rivear. [facility] /[id number]
[2021-03-03] MEDS ORDERED: Nalbuphine 10 MG/1 ML Vial IV ONE (11:14)
[2021-03-03] MEDS ORDERED: fentaNYL 100 MCG/2 ML SDV ONE (13:15)
[2021-03-03] MEDS ORDERED: EPINEPHrine 1 MG/ML SDV ONE ×2 (13:15→13:20)
[2021-03-03] MEDS ORDERED: fentaNYL 100 MCG/2 ML SDV ITHECAL ONE (13:20)
--- NOTE | 2021-03-03 13:51 | PCM.PRNOTE ---
- Free Text/Narrative Note: Requested to provide analgesia to full term patient in severe pain. Upon entering the room, patient is sitting on edge of bed complaining of severe abdominal/pelvic pain and discomfort. Procedure was discussed with patient including adverse outcomes and expectations. Pt consented to analgesia, SAB/IT. Pt placed into a proper sitting position. Landmarks for SAB/IT were identified and marked. Hands were washed and appropriate PPE was applied. Back was prepped with betadine x3. A sterile, transparent, fenestrated drape was applied. Excess betadine was removed. Using 3 mL of a 1% lidocaine solution, a skin wheel was placed at the L2/L3 interspace. A 24 ga (4 inch) Pencan spinal needle was inserted until positive for CSF. Negative for heme or paresthesias. Injected fentanyl 30 mcg, sufentanil 25 mcg, and 7.5 mg of a 0.75% bupivacaine solution with an epi wash. Pt was placed left lateral tilt position for approximately 20 minutes. There were zero complications or adverse outcomes. Will continue to monitor. Procedure Date & Time: 03/03/21 [id number]
[2021-03-03] MEDS ORDERED: Benzocaine/Menthol 20%-0.5% Spray 78 GM Cannister TOP PRN (15:39)
[2021-03-03] MEDS ORDERED: Oxytocin 10 Units/1 ML SDV IM PRN (15:39)
[2021-03-03] MEDS ORDERED: Simethicone 80 MG Tab.Chew PO PRN (15:39)
[2021-03-03] MEDS ORDERED: Ibuprofen 800 MG Tab PO PRN (15:39)
[2021-03-03] MEDS ORDERED: Docusate Sodium 100 MG Cap PO PRN (15:39)
[2021-03-04] MEDS ORDERED: Prenatal Multivitamin with Calcium/Folic Acid/Iron Tab PO SCH (09:00)
--- NOTE | 2021-03-04 11:09 | PCM.DCSUM1 ---
Discharge Summary - Hospital Course Diagnosis: Stroke: No - Discharge Data Discharge Disposition: Home, Self-Care 01 Condition: Good - Referral to Home Health Primary Care Physician: Ranulfo Rivera MD - Discharge Plan *PRESCRIPTION DRUG MONITORING PROGRAM REVIEWED*: Not Applicable *COPY OF PRESCRIPTION DRUG MONITORING REPORT IN PATIENT MARIA E: Not Applicable Home Medications: Home Meds Famotidine [Pepcid] 20 mg PO DAILY PRN 10/18/17 [History] Levothyroxine 25 mcg PO ACBREAKFAST 10/18/17 [History] Omeprazole [priLOSEC OTC] 20 mg PO DAILY PRN 10/18/17 [History] Vits #93/Iron Fum/FA [ Formula Tablet] 1 tab PO DAILY 10/18/17 [History] Acetaminophen [Tylenol] 650 mg PO Q6H PRN tablet 10/21/17 [Rx] Docusate Sodium [Colace] 100 mg PO BID PRN cap 10/21/17 [Rx] Ibuprofen [IJD: Ibuprofen] 800 mg PO Q8H PRN tablet 10/21/17 [Rx] - Patient Data Vitals - Most Recent: Last Vital Signs Temp 36.9 C 03/04/21 08:00 Pulse 110 H 03/04/21 08:00 Resp 16 03/04/21 08:00 BP 120/74 03/03/21 20:00 Pulse Ox 98 03/04/21 08:00 Weight - Most Recent: 108.862 kg Med Orders - Current: Current Medications Acetaminophen (Acetaminophen 325 Mg Tab) 650 mg PO Q4H PRN PRN Reason: Pain (Mild 1-3) and fever Last Admin: 03/03/21 20:03 Dose: 650 mg Documented by: Benzocaine/Menthol (Benzocaine/Menthol 20%-0.5% [place] 78 Gm Cannister) 0 gm TOP Q4H PRN PRN Reason: Perineal comfort measures Carboprost Tromethamine (Carboprost Tromethamine 250 Mcg/1 Ml Amp) 250 mcg IM ASDIRECTED PRN PRN Reason: HEMORRHAGE Docusate Sodium (Docusate Sodium 100 Mg Cap) 100 mg PO BID PRN PRN Reason: Constipation Last Admin: 03/03/21 21:18 Dose: 100 mg Documented by: Tranexamic Acid 1,000 mg/ (Sodium Chloride) 110 mls @ 660 mls/hr IV ONETIME PRN PRN Reason: Bleeding Oxytocin/Sodium Chloride (Pitocin In Ns 30 Unit/500 Ml) 30 unit in 500 mls @ 2 mls/hr IV TITRATE LORRI; Protocol Last Titration: 03/03/21 17:30 Dose: 50 munits/min, 50 mls/hr Documented by: Ibuprofen (Ibuprofen 800 Mg Tab) 800 mg PO Q8H PRN PRN Reason: Cramping Last Admin: 03/04/21 09:01 Dose: 800 mg Documented by: Lidocaine HCl (Lidocaine 1% 30 Ml Sdv) 30 ml INJECT ASDIRECTED PRN PRN Reason: Perineal Repair Methylergonovine Maleate (Methylergonovine 0.2 Mg/1 Ml Amp) 0.2 mg IM ASDIRECTED PRN PRN Reason: Hemorrhage Misoprostol (Misoprostol 400 Mcg (4 X 100 Mcg Tab)) 800 mcg RECTAL ASDIRECTED PRN PRN Reason: Hemorrhage Ondansetron HCl (Ondansetron 4 Mg/2 Ml Sdv) 4 mg IVPUSH Q4H PRN PRN Reason: Nausea/Vomiting Last Admin: 03/03/21 17:24 Dose: 4 mg Documented by: Oxytocin (Oxytocin 10 Units/1 Ml Sdv) 10 unit IM ONETIME PRN PRN Reason: Bleeding Prenat Multivit/[place]/Iron/Folic Ac ( Multivitamin With Calcium/Folic Acid/Iron Tab) 1 each PO DAILY LORRI Last Admin: 03/04/21 09:01 Dose: 1 each Documented by: Simethicone (Simethicone 80 Mg Tab.Chew) 80 mg PO Q4H PRN PRN Reason: Gas Sodium Chloride (Sodium Chloride 0.9% 10 Ml Syringe) 10 ml FLUSH ASDIRECTED PRN PRN Reason: Keep Vein Open Discontinued Medications Epinephrine HCl (Epinephrine 1 Mg/Ml Sdv) Confirm Administered Dose 1 mg .ROUTE .STK-MED ONE Stop: 03/03/21 13:16 Last Admin: 03/03/21 23:05 Dose: Not Given Documented by: Fentanyl (Fentanyl 100 Mcg/2 Ml Sdv) Confirm Administered Dose 100 mcg .ROUTE .STK-MED ONE Stop: 03/03/21 13:16 Last Admin: 03/03/21 23:05 Dose: Not Given Documented by: Lactated Ringer's (Ringers, Lactated) 1,000 mls @ 150 mls/hr IV BOLUS ONE Stop: 03/03/21 14:50 Last Admin: 03/03/21 23:05 Dose: Not Given Documented by: Lactated Ringer's (Ringers, Lactated) 1,000 mls @ 125 mls/hr IV ASDIRECTED [facility] Last Admin: 03/03/21 18:45 Dose: 125 mls/hr Documented by: Vancomycin HCl 1 gm/ Sodium (Chloride) 250 mls @ 166.7 mls/hr IV Q12HR [facility] Last Admin: 03/03/21 08:40 Dose: 166.7 mls/hr Documented by: Nalbuphine HCl (Nalbuphine 10 Mg/1 Ml Vial) 20 mg IV ONETIME ONE Stop: 03/03/21 11:15 Last Admin: 03/03/21 11:25 Dose: 20 mg Documented by: Sufentanil Citrate (Sufentanil 50 Mcg/1 Ml Amp) Confirm Administered Dose 50 mcg .ROUTE .STK-MED ONE Stop: 03/03/21 13:16 Last Admin: 03/03/21 23:05 Dose: Not Given Documented by:
--- NOTE | 2021-03-04 15:02 | PCM.DEL ---
L & D Note - General Info Date of Service: 03/03/21 - Delivery Note Labor: Spontaneous, Augmented by Oxytocin Cervical Ripening Method: Oxytocin Delivery Outcome: Livebirth Infant Delivery Method: Spontaneous Vaginal Delivery-Single Delivery Mode: Spontaneous Presentation: Right Occiput Anterior (LILIANA) Nuchal Cord: Present (x1), Reduced (bluntly upon delivery) Anesthesia Type: Intrathecal Episiotomy Type: None Laceration: None Placenta: Intact, Spontaneous Cord: 3 Vessels Estimated Blood Loss: 50 Resuscitation Needed: No : Bulb Syringe, Stimulated, Warmed, [place] Used Score 1 min: 7 Score 5 min: 8 Second Stage Interventions: Reports: Pushing Effectively Delivery Comments (Free Text/Narrative):: Date:03/03/2021 Delivery Summary:Aurora Ramirez a 31 year old at 37w3d who presents today with the complaint of spontaneous rupture of membranes around 0600. Patient presented to Labor and Delivery around 0700 on 03/03/21. On presentation she was noted to be 3cm dilated, 80% effaced and -3 station. She is GBS positive (treated with Vancomycin due to allergy to Augmentin), O+ blood type, Rubella Immune. Patient received IV pitocin for labor augmentation. Requested Intrathecal anesthesia which was initiated as pain intensified. Patient continued to progress as expected. Subsequently patient was noted to be complete and began pushing at 1445 with adequate progress. presentation in the LILIANA position with delivery of subsequently thereafter over intact perineum. Time of was 1519. Infant was brought directly to mother's chest for skin to skin and initiation of bonding. Delayed cord clapping was completed, cord was subsequently clamped then cut by father of baby. With gentle fundal massage and cord traction placental delivery occurred at 1530 and was noted to be intact with 3 vessel cord. Upon subsequent vaginal examination perineum was intact. was bulb suctioned, dried, and stimulated on mother's chest with spontaneous cry heard. scores were 7 and 8 at one and five minutes respectively. Both mother and were doing well immediately . Episiotomy: none Laceration: none Repair: n/a Anesthesia:Intrathecal EBL: 50ml Infant findings: Sex: femaleGestational Age: 37w3d Delivery:spontaneous vaginal delivery Living: living Weight: 3265g Height: 19.5in Presentation: LILIANA Apgars:7 and 8 at 1' and 5' respectively Cord: 3 vessel Delivery was completed today by myself and Dr. Rivera. Delivery summary is under advisement of Dr. Rivera. Anastasiya Watkins MD PGY-II - General Info Date of Service: 03/03/21 - Patient Data Vitals - Most Recent: Last Vital Signs Temp 98.6 F 03/04/21 12:00 Pulse 92 03/04/21 12:00 Resp 16 03/04/21 12:00 BP 126/80 03/04/21 12:00 Pulse Ox 98 03/04/21 08:00 Weight - Most Recent: 240 lb I&O - Last 24 Hours: Intake & Output 03/03/21 03/04/21 03/04/21 22:59 06:59 14:59 Intake Total 300 Balance 300 Med Orders - Current: Current Medications Acetaminophen (Acetaminophen 325 Mg Tab) 650 mg PO Q4H PRN PRN Reason: Pain (Mild 1-3) and fever Last Admin: 03/03/21 20:03 Dose: 650 mg Documented by: Benzocaine/Menthol (Benzocaine/Menthol 20%-0.5% [place] 78 Gm Cannister) 0 gm TOP Q4H PRN PRN Reason: Perineal comfort measures Carboprost Tromethamine (Carboprost Tromethamine 250 Mcg/1 Ml Amp) 250 mcg IM ASDIRECTED PRN PRN Reason: HEMORRHAGE Docusate Sodium (Docusate Sodium 100 Mg Cap) 100 mg PO BID PRN PRN Reason: Constipation Last Admin: 03/03/21 21:18 Dose: 100 mg Documented by: Tranexamic Acid 1,000 mg/ (Sodium Chloride) 110 mls @ 660 mls/hr IV ONETIME PRN PRN Reason: Bleeding Oxytocin/Sodium Chloride (Pitocin In Ns 30 Unit/500 Ml) 30 unit in 500 mls @ 2 mls/hr IV TITRATE LORRI; Protocol Last Titration: 03/03/21 17:30 Dose: 50 munits/min, 50 mls/hr Documented by: Ibuprofen (Ibuprofen 800 Mg Tab) 800 mg PO Q8H PRN PRN Reason: Cramping Last Admin: 03/04/21 09:01 Dose: 800 mg Documented by: Lidocaine HCl (Lidocaine 1% 30 Ml Sdv) 30 ml INJECT ASDIRECTED PRN PRN Reason: Perineal Repair Methylergonovine Maleate (Methylergonovine 0.2 Mg/1 Ml Amp) 0.2 mg IM ASDIRECTED PRN PRN Reason: Hemorrhage Misoprostol (Misoprostol 400 Mcg (4 X 100 Mcg Tab)) 800 mcg RECTAL ASDIRECTED PRN PRN Reason: Hemorrhage Ondansetron HCl (Ondansetron 4 Mg/2 Ml Sdv) 4 mg IVPUSH Q4H PRN PRN Reason: Nausea/Vomiting Last Admin: 03/03/21 17:24 Dose: 4 mg Documented by: Oxytocin (Oxytocin 10 Units/1 Ml Sdv) 10 unit IM ONETIME PRN PRN Reason: Bleeding Prenat Multivit/[place]/Iron/Folic Ac ( Multivitamin With Calcium/Folic Acid/Iron Tab) 1 each PO DAILY [facility] Last Admin: 03/04/21 09:01 Dose: 1 each Documented by: Simethicone (Simethicone 80 Mg Tab.Chew) 80 mg PO Q4H PRN PRN Reason: Gas Sodium Chloride (Sodium Chloride 0.9% 10 Ml Syringe) 10 ml FLUSH ASDIRECTED PRN PRN Reason: Keep Vein Open Discontinued Medications Epinephrine HCl (Epinephrine 1 Mg/Ml Sdv) Confirm Administered Dose 1 mg .ROUTE .STK-MED ONE Stop: 03/03/21 13:16 Last Admin: 03/03/21 23:05 Dose: Not Given Documented by: Fentanyl (Fentanyl 100 Mcg/2 Ml Sdv) Confirm Administered Dose 100 mcg .ROUTE .STK-MED ONE Stop: 03/03/21 13:16 Last Admin: 03/03/21 23:05 Dose: Not Given Documented by: Lactated Ringer's (Ringers, Lactated) 1,000 mls @ 150 mls/hr IV BOLUS ONE Stop: 03/03/21 14:50 Last Admin: 03/03/21 23:05 Dose: Not Given Documented by: Lactated Ringer's (Ringers, Lactated) 1,000 mls @ 125 mls/hr IV ASDIRECTED [facility] Last Admin: 03/03/21 18:45 Dose: 125 mls/hr Documented by: Vancomycin HCl 1 gm/ Sodium (Chloride) 250 mls @ 166.7 mls/hr IV Q12HR [facility] Last Admin: 03/03/21 08:40 Dose: 166.7 mls/hr Documented by: Nalbuphine HCl (Nalbuphine 10 Mg/1 Ml Vial) 20 mg IV ONETIME ONE Stop: 03/03/21 11:15 Last Admin: 03/03/21 11:25 Dose: 20 mg Documented by: Sufentanil Citrate (Sufentanil 50 Mcg/1 Ml Amp) Confirm Administered Dose 50 mcg .ROUTE .STK-MED ONE Stop: 03/03/21 13:16 Last Admin: 03/03/21 23:05 Dose: Not Given Documented by: - Problem List & Annotations (1) Normal spontaneous vaginal delivery SNOMED Code(s): 77248175, 510490525 Code(s): O80 - ENCOUNTER FOR FULL-TERM UNCOMPLICATED DELIVERY Status: Acute Current Visit: Yes - Problem List Review Problem List Initiated/Reviewed/Updated: Yes - Plan Plan:: 1. Continue routine cares.
== END 2021-03-04 17:45 | disposition home or self-care (01) | DRG 560 ==
LOC: DL.OBCHECK 07:07 → DL.OB 08:11 → OBSVTOIN 15:19
PROVIDERS: ADMIT Family Medicine; ATTEND Family Medicine
PROC: 10E0XZZ Delivery of Products of Conception, External Approach (ICD-10-PCS; principal; 2021-03-03)
PROC: 3E0R3BZ Introduction of Anesthetic Agent into Spinal Canal, Percutaneous Approach (ICD-10-PCS; 2021-03-03)
DX: O99.824 Streptococcus B carrier state complicating childbirth (principal); Z3A.37 37 weeks gestation of pregnancy; Z37.0 Single live birth; O99.284 Endocrine, nutritional and metabolic diseases complicating childbirth; E03.9 Hypothyroidism, unspecified; Z79.890 Hormone replacement therapy; Z20.822 Contact with and (suspected) exposure to COVID-19
CPT/HCPCS: 01967; 36415; 59409; 84112; 85027; A9270-GY; J0171; J2300; J2405; J2590; J3010; J3370; J7050; J7120; U0002